=== PATIENT | female | born 1965 | race Caucasian/White ===

== ENCOUNTER 2018-11-04 05:57 | Day surgery (SDC) | payer OTHER ==
[2018-11-04] MEDS ORDERED: DEXAMETHASONE 4 MG/ML 1ML VIAL IVP ONE ×2 (05:58)
[2018-11-04] MEDS ORDERED: LIDOCAINE 2% MDV (20MG/ML) 20ML VIAL IV ONE (05:58)
[2018-11-04] MEDS ORDERED: PROPOFOL 10 MG/ML VIAL IV ONE (05:58)
[2018-11-04] MEDS ORDERED: 0.9 % SODIUM CHLORIDE 10 ML VIAL IVP ONE (05:58)
[2018-11-04] MEDS ORDERED: BUPIVACAINE 0.25% MPF 30ML VIAL IVP ONE (05:58)
[2018-11-04] MEDS ORDERED: BUPIVACAINE LIPOSOME/PF 133MG/10ML VIAL IV ONE (05:58)
[2018-11-04] MEDS ORDERED: FENTANYL PF 100MCG/2ML VIAL IV ONE (05:58)
[2018-11-04] MEDS ORDERED: DIPHENHYDRAMINE HCL 50 MG/ML VIAL IVP ONE (05:58)
[2018-11-04] MEDS ORDERED: ONDANSETRON HCL IV 4 MG/2 ML VIAL IVP ONE (05:58)
[2018-11-04] MEDS ORDERED: MIDAZOLAM HCL 2MG/2ML VIAL IV ONE (05:58)
[2018-11-04] MEDS ORDERED: SEVOFLURANE 250 ML INH ONE (05:58)
[2018-11-04] MEDS ORDERED: CEFAZOLIN 2 Gram 2 GM/50 ML BAG IVPB SCH (06:00)
[2018-11-04] MEDS ORDERED: METOCLOPRAMIDE 10 MG TABLET PO ONE (06:00)
[2018-11-04] MEDS ORDERED: SCOPOLAMINE 1 PATCH TDSY TD ONE (06:00)
[2018-11-04] MEDS ORDERED: FAMOTIDINE 20MG TABLET PO ONE (06:00)
[2018-11-04] MEDS ORDERED: ACETAMINOPHEN 1,000 MG/100 ML BTL IVPB ONE (06:00)
[2018-11-04 06:12] LABS: HEMATOCRIT 43.7 % (35.0-47.0); HEMOGLOBIN 14.7 gm/dl (11.6-16.0)
[2018-11-04] MEDS ORDERED: RINGERS SOLUTION,LACTATED 1,000 ML IV ONE ×3 (06:30→10:30)
[2018-11-04] MEDS ORDERED: HYDROMORPHONE HCL 2 MG/ML VIAL IVP ONE ×2 (11:16→11:25)
[2018-11-04] MEDS ORDERED: HYDROCODONE/APAP 5/325MG TABLET PO PRN ×3 (12:28→16:22)
[2018-11-04] MEDS: RINGERS SOLUTION,LACTATED 1,000 ML IV SCH ×2 (13:30→21:26)
[2018-11-04] MEDS ORDERED: ONDANSETRON HCL IV 4 MG/2 ML VIAL IVP PRN (13:30)
[2018-11-04] MEDS ORDERED: RINGERS SOLUTION,LACTATED 1,000 ML IV PRN (15:29)
[2018-11-04] MEDS: HYDROCODONE/APAP 5/325MG TABLET PO PRN ×2 (16:44→20:38)
[2018-11-04] MEDS: CEFAZOLIN 1 Gram 1 GM/50 ML BAG IVPB SCH (16:49)
[2018-11-04] MEDS ORDERED: APIXABAN 5MG TABLET PO SCH (22:00)
[2018-11-04] MEDS ORDERED: ZOLPIDEM TARTRATE 5 MG TABLET PO SCH (22:00)
[2018-11-05] MEDS: CEFAZOLIN 1 Gram 1 GM/50 ML BAG IVPB SCH ×2 (00:38→07:11)
[2018-11-05] MEDS: HYDROCODONE/APAP 5/325MG TABLET PO PRN ×2 (00:41→05:40)
[2018-11-05] MEDS: RINGERS SOLUTION,LACTATED 1,000 ML IV SCH (05:42)
[2018-11-05] MEDS ORDERED: PSYLLIUM HUSK/ASPARTAME 3.4 GM POWD.PACK PO SCH (10:00)
--- NOTE | 2018-11-05 15:00 | Discharge Summary ---
DATE OF ADMISSION: 11/04/2018 DATE OF DISCHARGE: 11/05/2018 ADMITTING DIAGNOSIS: Bilateral symptomatic macromastia. DISCHARGE DIAGNOSIS: Bilateral symptomatic macromastia. PROCEDURES: Bilateral breast reduction. COMPLICATIONS: None. DISPOSITION AT DISCHARGE: Good. HISTORY OF PRESENT ILLNESS: The patient is a very nice 53-year-old patient who underwent uncomplicated bilateral breast reduction. HOSPITAL COURSE: At discharge, her suture lines were intact. She had no surgical complications. She was ambulating, taking p.o. Very specific instructions were given for care and followup. Carlton Melton MD [facility]
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
== END 2018-11-05 09:15 | disposition home or self-care (01) ==
LOC: SUR 05:57 → MEDSURG 11:50 → SUR 11-05 09:15
PROVIDERS: ATTEND Plastic Surgery
DX: N64.82 Hypoplasia of breast (principal); N64.4 Mastodynia; L30.4 Erythema intertrigo; M79.18 Myalgia, other site; Z79.01 Long term (current) use of anticoagulants; D68.51 Activated protein C resistance; Z86.718 Personal history of other venous thrombosis and embolism
CPT/HCPCS: 19318; 00402; 64461; 85018; 85014; J2405; J3490 ×2; J3010; J0690 ×3; J1170; C9290; J1200; J7120